=== PATIENT | male | born 1980 | race Caucasian/White ===

== ENCOUNTER 2023-07-29 12:01 | Inpatient (IN) | payer MEDICARE, MEDICAID ==
--- NOTE | 2023-07-29 12:37 | ED ---
General Adult HPI - General Chief complaint: Psychiatric Symptoms Stated complaint: mental health Time Seen by Provider: 07/29/23 12:25 Source: patient, RN notes reviewed, old records reviewed Mode of arrival: ambulatory Limitations: no limitations - History of Present Illness Initial comments: This is a 43-year-old male who presents to the emergency department because he believes people are following him and trying to kill him. 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 Patient states they have guns and he believes they are going to kill him. Patient states he went to [facility] and [facility] and they instructed him to come here. Patient denies any physical complaints. Patient denies fever chills fevers is chest pain patient has any difficulty breathing patient has abdominal pain - Related Data Home Medications Medication Instructions Recorded Confirmed Aripiprazole Lauroxil [Aristada] 1,064 mg IM Q56D 07/29/23 07/29/23 Cyclobenzaprine [Flexeril] 5 mg PO Q8H PRN 07/29/23 07/29/23 Divalproex [Depakote] 250 mg PO DAILY@1800 07/29/23 07/29/23 Divalproex [Depakote] 500 mg PO BID@0900,1800 07/29/23 07/29/23 Fluticasone Nasal [place] [Flonase 2 spray EA NOSTRIL DAILY 07/29/23 07/29/23 Nasal [place]] Multivitamins, Thera [Multivitamin 1 tab PO DAILY 07/29/23 07/29/23 (formulary)] OLANZapine [OLANZapine Odt] 10 mg PO TID 07/29/23 07/29/23 Propranolol [Inderal] 20 mg PO TID 07/29/23 07/29/23 busPIRone HCL 20 mg PO TID 07/29/23 07/29/23 clonazePAM [KlonoPIN] 1 mg PO TID PRN 07/29/23 07/29/23 haloperidoL [Haloperidol] 10 mg PO ONCE 07/29/23 07/29/23 lisinopriL [Zestril] 5 mg PO DAILY 07/29/23 07/29/23 traZODone HCL [Desyrel] 100 mg PO HS 07/29/23 07/29/23 Allergies Allergy/AdvReac Type Severity Reaction Status Date / Time Penicillins Allergy Rash/Hives Verified 07/29/23 13:21 Review of Systems ROS Statement: Those systems with pertinent positive or pertinent negative responses have been documented in the HPI. ROS Other: All systems not noted in ROS Statement are negative. Past Medical History Past Medical History: Hypertension History of Any Multi-Drug Resistant Organisms: None Reported Past Surgical History: Orthopedic Surgery Past Psychological History: Anxiety, Schizoaffective Disorder Smoking Status: Never smoker Past Alcohol Use History: Rare Past Drug Use History: None Reported General Exam - General Exam Comments Initial Comments: GENERAL: Patient is well-developed and well-nourished. Patient is nontoxic and well- hydrated and is in no acute distress. ENT: Neck is soft and supple. No significant lymphadenopathy is noted. Oropharynx is clear. Moist mucous membranes. Neck has full range of motion without eliciting any pain. EYES: The sclera were anicteric and conjunctiva were pink and moist. Extraocular movements were intact and pupils were equal round and reactive to light. Eyelids were unremarkable. PULMONARY: Unlabored respirations. Good breath sounds bilaterally. No audible rales rhonchi or wheezing was noted. CARDIOVASCULAR: There is a regular rate and rhythm without any murmurs gallops or rubs ABDOMEN: Soft and nontender with normal bowel sounds. SKIN: Skin is clear with no lesions or rashes and otherwise unremarkable. NEUROLOGIC: Patient is alert and oriented x3. Cranial nerves II through XII are grossly intact. Motor and sensory are also intact. Normal speech, volume and content. Symmetrical smile. MUSCULOSKELETAL: Normal extremities with adequate strength and full range of motion. LYMPHATICS: No significant lymphadenopathy is noted PSYCHIATRIC: Patient believes people are following him trying to kill him he states he can go nowhere without them. Patient states that he thinks they were care and are already in the hospital Limitations: no limitations Course Vital Signs 07/29/23 12:03 Temperature 98.8 F Pulse Rate 90 Respiratory 18 Rate Blood Pressure 134/85 O2 Sat by Pulse 97 Oximetry Medical Decision Making - Medical Decision Making Was pt. sent in by a medical professional or institution (, PA, SPECIAL EDUCATION PARA PROFESSIONAL, urgent care, hospital, or detention...) When possible be specific @ -Patient was sent in by [facility] from [facility] Did you speak to anyone other than the patient for history (EMS, parent, family, police, friend...)? What history was obtained from this source @ -No Did you review nursing and triage notes (agree or disagree)? Why? @ -I reviewed and agree with nursing and triage notes Were old charts reviewed (outside hosp., previous admission, EMS record, old EKG, old radiological studies, urgent care reports/EKG's, detention records)? Report findings @ -I reviewed prior charts and this patient Differential Diagnosis (chest pain, altered mental status, abdominal pain women, abdominal pain men, vaginal bleeding, weakness, fever, dyspnea, syncope, headache, dizziness, GI bleed, back pain, seizure, CVA, palpatations, mental hea lth, musculoskeletal)? @ -Differential Mental Health Depression, anxiety, bipolar, psychosis, schizophrenia, borderline personality, situational depression, adjustment disorder, behavioral disorder, brain tumor, malingering, substance abuse, encephalopathy, medication reaction, dementia, hypothyroidism, degenerative neurologic disorder, lupus.... This is not meant to be all-inclusive list EKG interpreted by me (3pts min.). @ -As above X-rays interpreted by me (1pt min.). @ -None done CT interpreted by me (1pt min.). @ -None done U/S interpreted by me (1pt. min.). @ -None done What testing was considered but not performed or refused? (CT, X-rays, U/S, labs)? Why? @ -None What meds were considered but not given or refused? Why? @ -None Did you discuss the management of the patient with other professionals (professionals i.e. , PA, SPECIAL EDUCATION PARA PROFESSIONAL, lab, RT, psych nurse, health care social worker, production administrator, teacher, hospital security officer, corrections caseworker)? Give summary @ -EPS evaluated this patient and determined the patient needed to be admitted with consultation with the psychiatrist Was smoking cessation discussed for >3mins.? @ -No Was critical care preformed (if so, how long)? @ -No Were there social determinants of health that impacted care today? How? (Homelessness, low income, unemployed, alcoholism, drug addiction, transportation, low edu. Level, literacy, decrease access to med. care, fci, rehab)? @ -No Was there de-escalation of care discussed even if they declined (Discuss DNR or withdrawal of care, Hospice)? DNR status @ -No What co-morbidities impacted this encounter? (DM, HTN, Smoking, COPD, CAD, Cancer, CVA, ARF, Chemo, Hep., AIDS, mental health diagnosis, sleep apnea, morbid obesity)? @ -None Was patient admitted / discharged? Hospital course, mention meds given and route, prescriptions, significant lab abnormalities, going to OR and other pertinent info. @ -Patient wanted to be admitted so he signed himself in. EPS was involved in interviewing the patient and speaking with a psychiatrist Undiagnosed new problem with uncertain prognosis? @ -No Drug Therapy requiring intensive monitoring for toxicity (Heparin, Nitro, Insulin, Cardizem)? @ -No Were any procedures done? @ -No Diagnosis/symptom? @ -Acute paranoia Acute, or Chronic, or Acute on Chronic? @ -Acute Uncomplicated (without systemic symptoms) or Complicated (systemic symptoms)? @ -Complicated Side effects of treatment? @ -No Exacerbation, Progression, or Severe Exacerbation? @ -No Poses a threat to life or bodily function? How? (Chest pain, USA, CA, pneumonia, PE, COPD, DKA, ARF, appy, cholecystitis, CVA, Diverticulitis, Homicidal, Suicidal, threat to staff... and all critical care pts) @ -No - Lab Data Lab Results 07/29/23 07/29/23 Range/Units 13:15 14:22 Urine Opiates Screen Not Detected (NotDetected) Ur Oxycodone Screen Not Detected (NotDetected) Urine Methadone Screen Not Detected (NotDetected) Ur Barbiturates Screen Not Detected (NotDetected) U Tricyclic Antidepress Not Detected (NotDetected) Ur Phencyclidine Scrn Not Detected (NotDetected) Ur Amphetamines Screen Not Detected (NotDetected) U Methamphetamines Scrn Not Detected (NotDetected) U Benzodiazepines Scrn Not Detected (NotDetected) Urine Cocaine Screen Not Detected (NotDetected) U Marijuana (THC) Screen Not Detected (NotDetected) Influenza Type A (PCR) Not Detected (Not Detectd) Influenza Type B (PCR) Not Detected (Not Detectd) RSV (PCR) Not Detected (Not Detectd) SARS-CoV-2 (PCR) Not Detected (Not Detectd) Disposition Clinical Impression: Acute paranoia Disposition: ADMITTED IP TO THIS HOSP Referrals: Yue Santamaria MD [Primary Care Provider] - 1-2 days Time of Disposition: 15:02
[2023-07-29 13:56] LABS: Amphetamine Screen,Urine Not Detected (NotDetected); Barbiturate Screen,Urine Not Detected (NotDetected); Benzodiazepines Screen,Urine Not Detected (NotDetected); Cocaine Screen,Urine Not Detected (NotDetected); Methadone Screen, Urine Not Detected (NotDetected); Opiate Screen,Urine Not Detected (NotDetected); Oxycodone Screen, Urine Not Detected (NotDetected); Phencyclidine Screen,Urine Not Detected (NotDetected); Tricyclic Antidepressant,Urine Not Detected (NotDetected); Urn Cannabinoid Scrn Not Detected (NotDetected)
[2023-07-29] MEDS ORDERED: HALOPERIDOL LACTATE 5 MG/ML 1 ML VIAL IM PRN (16:02)
[2023-07-29] MEDS ORDERED: MAG HYDROX/AL HYDROX/SIMETH 355 ML BOTTLE PO PRN (16:02)
[2023-07-29] MEDS: DIVALPROEX 250 MG TABLET.DR PO SCH (17:52)
[2023-07-29] MEDS: DIVALPROEX 500 MG TABLET.DR PO SCH (17:52)
[2023-07-29] MEDS: clonazePAM 1 MG TAB PO PRN (18:55)
[2023-07-29] MEDS: IBUPROFEN 600 MG TAB PO PRN (18:57)
[2023-07-29] MEDS: busPIRone HCl 10 MG TAB PO SCH (21:14)
[2023-07-29] MEDS: traZODone HCL 100 MG TAB PO SCH (21:14)
[2023-07-29] MEDS: OLANZapine ODT 10 MG TAB PO SCH (21:14)
[2023-07-29] MEDS: PROPRANOLOL 20 MG TAB PO SCH (21:14)
[2023-07-30] MEDS: FLUTICASONE 50MCG/SPRAY NASAL 16GM EA NOSTRIL SCH (09:35)
[2023-07-30] MEDS: lisinopriL 5 MG TAB PO SCH (09:35)
[2023-07-30] MEDS: NICOTINE 14MG/24HR PATCH TRANSDERM SCH (09:36)
[2023-07-30] MEDS: MULTIVITAMINS, THERA 1 EACH TAB PO SCH (09:36)
[2023-07-30 13:56] LABS: ALT 23 U/L (4-49); AST 25 U/L (17-59); African American GFR (CKD) >90 (>60 ml/min/1.73 sqM); Alkaline Phosphatase 68 U/L (38-126); Anion Gap 5 mmol/L; Bilirubin, Delta 0.2 mg/dL (0.0-0.2); Bilirubin,Unconjugated 0.3 mg/dL (0.0-1.1); Blood Urea Nitrogen 15 mg/dL (9-20); Calcium 8.9 mg/dL (8.4-10.2); Carbon Dioxide 30 mmol/L (22-30); Chloride 105 mmol/L (98-107); Glucose 74 mg/dL (74-99); Non-African American GFR(CKD) >90 (>60 ml/min/1.73 sqM); Potassium 4.6 mmol/L (3.5-5.1); Sodium 140 mmol/L (137-145); Total Bilirubin 0.5 mg/dL (0.2-1.3); Total Protein 6.5 g/dL (6.3-8.2)
[2023-07-30 14:20] LABS: Basophils # (A) 0.1 k/uL (0-0.2); Basophils % (A) 1 %; Eosinophils # (A) 0.3 k/uL (0-0.7); Eosinophils % (A) 4 %; HGB 15.3 gm/dL (13.0-17.5); Lymphocytes # (A) 2.3 k/uL (1.0-4.8); Lymphocytes % (A) 27 %; MCH 31.6 pg (25.0-35.0); MCV 93.1 fL (80.0-100.0); Mean Platelet Volume 7.8; Monocytes # (A) 0.6 k/uL (0-1.0); Monocytes % (A) 7 %; Neutrophils # (A) 5.3 k/uL (1.3-7.7); Neutrophils % (A) 61 %; Platelet Count 218 k/uL (150-450); RBC 4.84 m/uL (4.30-5.90); RDW 12.1 % (11.5-15.5); WBC 8.7 k/uL (3.8-10.6)
--- NOTE | 2023-07-30 14:48 | P.HP ---
Psychiatric H&P - . H&P Date: 07/30/23 History & Physical: Allergies Allergy/AdvReac Type Severity Reaction Status Date / Time lamotrigine [From Lamictal] Allergy Unknown Rash/Hives Verified 07/29/23 17:57 Penicillins Allergy Rash/Hives Verified 07/29/23 17:57 Vital Signs Temp 98.1 F 07/30/23 06:14 Pulse 113 H 07/30/23 09:38 Resp 16 07/30/23 06:14 BP 119/84 07/30/23 09:38 Pulse Ox 98 07/29/23 17:07 FiO2 Intake & Output 07/29/23 07/30/23 07/30/23 18:59 06:59 18:59 Weight 108.976 kg Laboratory Last Values WBC 8.7 k/uL (3.8-10.6) 07/30/23 12:53 RBC 4.84 m/uL (4.30-5.90) 07/30/23 12:53 Hgb 15.3 gm/dL (13.0-17.5) 07/30/23 12:53 Hct 45.0 % (39.0-53.0) 07/30/23 12:53 MCV 93.1 fL (80.0-100.0) 07/30/23 12:53 MCH 31.6 pg (25.0-35.0) 07/30/23 12:53 MCHC 34.0 g/dL (31.0-37.0) 07/30/23 12:53 RDW 12.1 % (11.5-15.5) 07/30/23 12:53 Plt Count 218 k/uL (150-450) 07/30/23 12:53 MPV 7.8 07/30/23 12:53 Neutrophils % 61 % 07/30/23 12:53 Lymphocytes % 27 % 07/30/23 12:53 Monocytes % 7 % 07/30/23 12:53 Eosinophils % 4 % 07/30/23 12:53 Basophils % 1 % 07/30/23 12:53 Neutrophils # 5.3 k/uL (1.3-7.7) 07/30/23 12:53 Lymphocytes # 2.3 k/uL (1.0-4.8) 07/30/23 12:53 Monocytes # 0.6 k/uL (0-1.0) 07/30/23 12:53 Eosinophils # 0.3 k/uL (0-0.7) 07/30/23 12:53 Basophils # 0.1 k/uL (0-0.2) 07/30/23 12:53 Sodium 140 mmol/L (137-145) 07/30/23 12:53 Potassium 4.6 mmol/L (3.5-5.1) 07/30/23 12:53 Chloride 105 mmol/L (98-107) 07/30/23 12:53 Carbon Dioxide 30 mmol/L (22-30) 07/30/23 12:53 Anion Gap 5 mmol/L 07/30/23 12:53 BUN 15 mg/dL (9-20) 07/30/23 12:53 Creatinine 0.90 mg/dL (0.66-1.25) 07/30/23 12:53 Est GFR (CKD-EPI)AfAm >90 (>60 ml/min/1.73 sqM) 07/30/23 12:53 Est GFR (CKD-EPI)NonAf >90 (>60 ml/min/1.73 sqM) 07/30/23 12:53 Glucose 74 mg/dL (74-99) 07/30/23 12:53 Calcium 8.9 mg/dL (8.4-10.2) 07/30/23 12:53 Total Bilirubin 0.5 mg/dL (0.2-1.3) 07/30/23 12:53 Conjugated Bilirubin 0.0 mg/dL (0.0-0.3) 07/30/23 12:53 Unconjugated Bilirubin 0.3 mg/dL (0.0-1.1) 07/30/23 12:53 Delta Bilirubin 0.2 mg/dL (0.0-0.2) 07/30/23 12:53 AST 25 U/L (17-59) 07/30/23 12:53 ALT 23 U/L (4-49) 07/30/23 12:53 Alkaline Phosphatase 68 U/L (38-126) 07/30/23 12:53 Total Protein 6.5 g/dL (6.3-8.2) 07/30/23 12:53 Albumin 4.0 g/dL (3.5-5.0) 07/30/23 12:53 TSH 0.758 mIU/L (0.465-4.680) 07/30/23 12:53 Urine Opiates Screen Not Detected (NotDetected) 07/29/23 13:15 Ur Oxycodone Screen Not Detected (NotDetected) 07/29/23 13:15 Urine Methadone Screen Not Detected (NotDetected) 07/29/23 13:15 Ur Barbiturates Screen Not Detected (NotDetected) 07/29/23 13:15 U Tricyclic Antidepress Not Detected (NotDetected) 07/29/23 13:15 Ur Phencyclidine Scrn Not Detected (NotDetected) 07/29/23 13:15 Ur Amphetamines Screen Not Detected (NotDetected) 07/29/23 13:15 U Methamphetamines Scrn Not Detected (NotDetected) 07/29/23 13:15 U Benzodiazepines Scrn Not Detected (NotDetected) 07/29/23 13:15 Urine Cocaine Screen Not Detected (NotDetected) 07/29/23 13:15 U Marijuana (THC) Screen Not Detected (NotDetected) 07/29/23 13:15 Influenza Type A (PCR) Not Detected (Not Detectd) 07/29/23 14:22 Influenza Type B (PCR) Not Detected (Not Detectd) 07/29/23 14:22 RSV (PCR) Not Detected (Not Detectd) 07/29/23 14:22 SARS-CoV-2 (PCR) Not Detected (Not Detectd) 07/29/23 14:22 07/30/23 14:47 Psychiatric Evaluation Identifying Data: is a 43 years old, single, w.m. , who lives in [place], [place]. Chief Complaint: I am being followed, watched, some people are trying to kill me History of Psychiatric Illness- The patient noted that he has had these symptoms since his 20s. The patient noted that he has over 20 hospitalizations with same symptoms. He goes to the hospital with symptoms of being followed, watched and killed by people around him. These people are like humans. He does not know any particular person or persons trying want to kill him. He denied experiencing any symptoms of killing himself or other people during these episodes r otherwise. In between hospitalizations, he goes to [facility]. He indicated that he regularly goes for his follow-up in between hospitalizations. He sees Dr. Bond and therapist Shania. He is currently taking Aristada every 2months. He is in [facility]. He also takes Buspar, Klonopin and Propranolol. He was recently admitted to [facility] in [place], [place] and discharge from there on Depakote and Zyprexa. He saw Dr. Garcia yesterday, who prescribed him Haldol 10 mg and sent him to the hospital. He indicated that he does best on Haldol. The patient has been on numerous medications. The patient is a drug resistant according to him. He thinks this is delusional disorder with poor response to antipsychotics. Past Medication History: Depakote, Risperdal, Lamictal, Trileptal, Zyprexa, Geodon, Latuda, Zoloft, Effexor. The patient thinks Abilify and Latuda worked the best. No there drug worked. Leading questions: The patient denied Depression and Anxiety. Denied SI or HI. Admitted symptoms consistent with psychosis Drugs and alcohol history: None. Tobacco use: None. Past Medical history: HTN Family History of Psychiatric Disorder: Social History and Family History: The patient thinks that his father, mother and paternal uncle suffered from mental illness but he does not have the details. The patient was born and raised [place], [place]. He grew-up two siblings. He finished [employer]. His lingest alejandro was as a cook for 10 years. He is on SSDI. He is on disability since 2009. OTC: Vitamins Allergies: PNC, Lamictal Objective: MSE: Alert and attentive. Orientation times three Dressed and Groomed: Appropriately. Pleasant and cooperative. Psychomotor Activity: Normal. Speech: Normal in tone, quality, and quantity. Mood: Anxious Affect: Flat SI or HI: None. Perceptual disturbance: None noted during this evaluation. Thought Content: The patient noted that he is being followed and watched by people. he believes that these people want to kill him. or other delusional thinking noted. Thought Process: Normal. Cognition: Intact Judgment and Insight: Poor. AIMS: Normal Labs: Available reviewed. Diagnosis: Paranoid Schizophrenia. Plan and Recommendations: Continue current Medications. Decrease dose of Depakote and Zyprexa. Consider Haldol or continue Aristada. Monitor MS and side effects of medications and adjust medications accordingly. Provide supportive psychotherapy and psychoeducation. The patient provided Substance abuse counseling. Smoke cessation therapy. The patient to attend [facility]. CBC with Diff, CMP, TSH, Lipid Profile, HbA1c, EKG, Medication Consent with explanation of risk/benefits and side effects: Explained and obtained.
[2023-07-30 15:11] LABS: Valproic Acid (Depakene) 61.5 ug/mL
[2023-07-30 20:10] LABS: Chol/HDL Ratio 4.57 Ratio; LDL Cholesterol,Calculated 109.5 mg/dL (0.0-131.0)
--- NOTE | 2023-07-31 01:27 | P.CONS ---
History of Present Illness - Reason for Consult Consult date: 07/31/23 - History of Present Illness The patient is a 43-year-old male with a PMH of hypertension, schizoaffective disorder, who had presented to the emergency room with complaints of depression and suicidal ideation. The patient was reportedly acting strangely and was advised to come to the emergency room. He was admitted to the mental health unit where he was seen and evaluated. The patient reports that he was "delusional". He denied any physical complaints at the time of interview. Denied experiencing chest discomfort, shortness of breath, fever, chills, cough, nausea, vomiting, abdominal pain, diarrhea. Denies tobacco, alcohol, or substance use. Reports compliance with medications at home. Review of systems: Pertinent positives and negatives as discussed in HPI, a complete review of systems was performed and all other systems are negative. Physical examination: General: non toxic, no distress, appears at stated age, obese Derm: no unusual rashes/lesions, no unusual ecchymoses, warm, dry Head: atraumatic, normocephalic, symmetric Eyes: EOMI, no lid lag, anicteric sclera ENT: Nose and ears atraumatic, no thrush, no pharyngeal erythema Neck: trachea midline, supple Mouth: no lip lesion, mucus membranes moist Cardiovascular: S1S2 reg, no murmur, no edema Lungs: CTA bilateral, no rhonchi, no rales , no accessory muscle use Abdominal: soft, nontender to palpation, no guarding Ext: no gross muscle atrophy, no contractures, Neuro: No gross focal neuro deficits noted Psych: Alert, oriented, appropriate affect Assessment: Depression and suicidal ideation Imaging: None performed Data Review: Urine toxicology unremarkable and respiratory viral panel unremarkable, with WBC count 8.7, hemoglobin 15.3, sodium 140, potassium 4.6, BUN 15, creatinine 0.9 Plan: Defer management of depression and suicidal ideation to the primary psychiatry service Thank you for allowing us to participate in the care of this patient. We will follow peripherally. Do not hesitate to contact us with questions. Someone can be reached from the [facility] hospitalist group at all hours of the day at [phone]. Past Medical History Past Medical History: Hypertension History of Any Multi-Drug Resistant Organisms: None Reported Past Surgical History: Orthopedic Surgery Additional Past Surgical History / Comment(s): Left shoulder surgery-limited mobility Past Psychological History: Anxiety, Schizoaffective Disorder Smoking Status: Former smoker Past Alcohol Use History: Rare Past Drug Use History: None Reported - Past Family History Father History Unknown: Yes Family Medical History: Hyperlipidemia Medications and Allergies Home Medications Medication Instructions Recorded Confirmed Type Aripiprazole Lauroxil [Aristada] 1,064 mg IM Q56D 07/29/23 07/29/23 History Cyclobenzaprine [Flexeril] 5 mg PO Q8H PRN 07/29/23 07/29/23 History Divalproex [Depakote] 250 mg PO DAILY@1800 07/29/23 07/29/23 History Divalproex [Depakote] 500 mg PO BID@0900,1800 07/29/23 07/29/23 History Fluticasone Nasal [place] [Flonase 2 spray EA NOSTRIL DAILY 07/29/23 07/29/23 History Nasal [place]] Multivitamins, Thera [Multivitamin 1 tab PO DAILY 07/29/23 07/29/23 History (formulary)] OLANZapine [OLANZapine Odt] 10 mg PO TID 07/29/23 07/29/23 History Propranolol [Inderal] 20 mg PO TID 07/29/23 07/29/23 History busPIRone HCL 20 mg PO TID 07/29/23 07/29/23 History clonazePAM [KlonoPIN] 1 mg PO TID PRN 07/29/23 07/29/23 History lisinopriL [Zestril] 5 mg PO DAILY 07/29/23 07/29/23 History traZODone HCL [Desyrel] 100 mg PO HS 07/29/23 07/29/23 History Allergies Allergy/AdvReac Type Severity Reaction Status Date / Time lamotrigine [From Lamictal] Allergy Unknown Rash/Hives Verified 07/29/23 17:57 Penicillins Allergy Rash/Hives Verified 07/29/23 17:57 Physical Exam Vitals: Vital Signs Temp Pulse Pulse Resp BP BP 07/30/23 21:50 109 H 97/60 07/30/23 15:46 111 H 100/63 07/30/23 09:38 113 H 119/84 07/30/23 06:14 98.1 F 77 16 118/73 Results CBC & Chem 7: 05/22/24 12:53 07/30/23 12:53 Labs: Abnormal Lab Results - Last 24 Hours (Table) 07/30/23 Range/Units 12:53 HDL Cholesterol 38.10 L (40.00-60.00) mg/dL
[2023-07-31] MEDS: ACETAMINOPHEN TAB 325 MG TAB PO PRN (13:57)
[2023-07-31] MEDS: PROPRANOLOL 20 MG TAB PO SCH (15:24)
[2023-07-31] MEDS: busPIRone HCl 10 MG TAB PO SCH (15:24)
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
[2023-07-31] MEDS: OLANZapine ODT 5 MG TAB PO SCH (18:23)
[2023-08-01] MEDS ORDERED: OLANZapine ODT 5 MG TAB PO SCH (07:00)
[2023-08-01] MEDS: OLANZapine ODT 10 MG TAB PO SCH ×2 (09:17→15:38)
--- NOTE | 2023-08-01 15:50 | P.PN ---
Progress Note - Text Progress Note Date: 08/01/23 Interval history: Patient was seen isolating to his room with the lights off. He was directable and agreeable to speak with consumer loan underwriter. His mood is irritable today and he complains about other patients who are talking on the unit. He refused his Depakote this morning and tells me he no longer wants to take it because he believes it is making his hair fall out, states he sees a lot of hair come out in chunks in the shower. There is no evidence of alopecia on his scalp, but we discussed he should save any hair that falls out in the shower to show me tomorrow. He complains he was not given his Trazodone last night, and per MAR, dose was not given due to patient already asleep. At this time, patient denies any suicidal or homicidal ideation, intent or plan. Denies any auditory or visual hallucinations. Patient denies any side effects from the medications and has been compliant with meds. Mental status exam: General Appearance: Patient appears to be stated age, obese adult male, dressed in clean casual attire Behavior: No agitated behavior. Patient is irritable, isolates to his room. Speech: Patient's speech is fluent and non-pressured. Mood/Affect: Mood is irritable, affect is congruent and constricted. Suicidality/Homicidality: Patient denies having any suicidal or homicidal ideation intent or plan. Perceptions: Patient denies any auditory or visual hallucinations. Though content/process: There is evidence of paranoid delusional thought content. Thought process is linear. Memory and concentration: AOX3, grossly intact for the purposes of this session Judgment and insight: poor Assessment/Plan: Continue with current diagnosis. Patient continues to meet criteria for inpatient psychiatric admission for symptom stabilization and safety. Increase Zyprexa to 10mg TID (0900, 1500, 1900). Move up Trazodone dose to 1900 since patient states he goes to bed early. Monitor for medication compliance and for any psychotropic medication side effects. Will continue to monitor ongoing response to treatment. Encouraged participation in milieu.
[2023-08-01] MEDS: traZODone HCL 100 MG TAB PO SCH (22:20)
[2023-08-02] MEDS: CYCLOBENZAPRINE 5 MG TAB PO PRN (04:02)
--- NOTE | 2023-08-02 19:04 | P.PN ---
Progress Note - Text Progress Note Date: 08/02/23 Interval history: Patient was seen sitting on his bed with the lights on. He appears less irritable today, more calm, but still somewhat guarded and terse. He was directable and agreeable to speak with gag writer. He continues to refuse his Depakote, but does not mention his hair falling out today. He appears to benefit from increasing the Zyprexa dose to 10 mg TID. He reports concern over weight gain from Zyprexa in the past. We discussed the addition of metformin however he declined, stated he will discuss options with his outpatient psychiatrist. He reports adequate sleep and good appetite. At this time, patient denies any suicidal or homicidal ideation, intent or plan. Denies any auditory or visual hallucinations. Patient denies any side effects from the medications and has been compliant with meds. Mental status exam: General Appearance: Patient appears to be stated age, obese adult male, dressed in clean casual attire Behavior: No agitated behavior. More calm, but still somewhat guarded and terse. Speech: Patient's speech is fluent and non-pressured. Mood/Affect: Mood is improving mildly, affect is congruent and constricted. Suicidality/Homicidality: Patient denies having any suicidal or homicidal ideation intent or plan. Perceptions: Patient denies any auditory or visual hallucinations. Though content/process: There is evidence of paranoid delusional thought content. Thought process is linear. Memory and concentration: AOX3, grossly intact for the purposes of this session Judgment and insight: improving mildly Assessment/Plan: Continue with current diagnosis. Patient continues to meet criteria for inpatient psychiatric admission for symptom stabilization and safety. Continue Zyprexa 10mg TID (0900, 1500, 1900). He continues to refuse his Depakote. Monitor for mood changes. Monitor for medication compliance and for any psychotropic medication side effects. Will continue to monitor ongoing response to treatment. Encouraged participation in milieu.
[2023-08-03] MEDS: haloperidoL 5 MG TAB PO PRN (18:59)
--- NOTE | 2023-08-03 20:44 | P.PN ---
Progress Note - Text Progress Note Date: 08/03/23 Interval history: Staff informed me this evening that patient is increasingly paranoid and believes of other patients having a "shank" and are going to attack him. I evaluated patient in his room this evening and he was found him sitting on his bed with the lights on waiting for nurse to bring his meds. He confirms to me his concerns about other patients on the unit having a "shank" and are going to gang up on him to stab him. He denies anyone making threats to him and denies anyone telling him of any plans to attack him. He denies any specific patient, and reports it's "all of them", although he is frustrated by 1-2 patients on the unit who tend to be loud in the hallways. He was given Haldol 5 mg po x 1 along with his evening medications and he went to sleep. He has not been agitated, but is more paranoid today and tends to isolate to his room. He continues to refuse his Depakote, but does not mention his hair falling out today. He reports adequate sleep and good appetite. At this time, patient denies any suicidal or homicidal ideation, intent or plan. Denies any auditory or visual hallucinations. Patient denies any side effects from the medications. He continues to insist on taking the lowest doses of medication necessary. Mental status exam: General Appearance: Patient appears to be stated age, obese adult male, dressed in clean casual attire Behavior: No agitated behavior. Calm but guarded and isolates to his room, appears hypervigilant. Speech: Patient's speech is fluent and non-pressured. Mood/Affect: Mood is anxious, affect is congruent and constricted. Suicidality/Homicidality: Patient denies having any suicidal or homicidal ideation intent or plan. Perceptions: Patient denies any auditory or visual hallucinations. Though content/process: There is evidence of paranoid delusional thought content (thinks patients on the unit have a shank and are going to stab him). Thought process is linear. Memory and concentration: AOX3, grossly intact for the purposes of this session Judgment and insight: poor Assessment/Plan: Continue with current diagnosis. Patient continues to meet criteria for inpatient psychiatric admission for symptom stabilization and safety. Continue Zyprexa 10mg ODT TID (0900, 1500, 1900) and add Zyprexa 5 mg daily in the morning for total dose of 15 mg/10mg/10mg. He continues to refuse his Depakote. Monitor for mood changes. Monitor for medication compliance and for any psychotropic medication side ef fects. Will continue to monitor ongoing response to treatment. Encouraged participation in milieu.
[2023-08-04] MEDS: OLANZapine 5 MG TAB PO SCH (09:10)
--- NOTE | 2023-08-04 11:29 | P.PN ---
Progress Note - Text Progress Note Date: 08/04/23 Interval history: Patient was found sitting in the TV room and staring out the window this morning. He does not appear to engage with peers in the room, appears to keep to himself. He claims he is "good" however he appears paranoid and guarded. He continues to exhibit paranoid delusional thought content, believes other patients on the unit were planning to attack him with a shank last night, which he tries to minimize this morning and says he hasn't really been thinking about it this morning, however he states those patients "they should be prosecuted". He is referring to all the patients and not just one or two patients in particular. He believes this has been happening every day for the past two years. We reviewed his medication in detail. He reports he was started on the Aristada last month and the next dose is due tomorrow 08/05/23. We discussed discontinuing the Aristada and starting Haldol in its place. He reports he has taken Haldol in the past (does not recall dates) and believes he did better on it. He states he is not happy with the Zyprexa and does not want to take it; he previously reported concern for weight gain on the Zyprexa. He has gained weight on the Zyprexa previously and worked hard to loose the weight and does not want to gain it back. He continues to refuse his Depakote. He reports adequate sleep and good appetite. He claims good mood but has an irritable edge. At this time, patient denies any suicidal or homicidal ideation, intent or plan. Denies any auditory or visual hallucinations. His insight into his paranoid delusions is poor. Patient denies any side effects from the medications. Mental status exam: General Appearance: Patient appears to be stated age, obese adult male, dressed in clean casual attire, garcia. Behavior: No agitated behavior. He is able to maintain calmness, not agitated today, is guarded and keeps to himself. He he is very paranoid and appears as if he could lash out if provoked. Speech: Patient's speech is fluent, terse and non-pressured. Mood/Affect: Mood is "good", affect is incongruent and constricted. Suicidality/Homicidality: Patient denies having any suicidal or homicidal ideation intent or plan. Perceptions: Patient denies any auditory or visual hallucinations. Though content/process: There is evidence of paranoid delusional thought content (thinks patients on the unit have a shank and are going to stab him, thinks patients should be prosecuted). Thought process is generally linear. Memory and concentration: AOX3, grossly intact for the purposes of this session Judgment and insight: poor Assessment/Plan: Continue with current diagnosis. Patient continues to meet criteria for inpatient psychiatric admission for symptom stabilization and safety. He is compliant with the Zyprexa but states he does not want the Zyprexa due to concerns over weight gain. Continue Zyprexa 10mg ODT TID (0900, 1500, 1900). Discontinue morning Zyprexa 5 mg dose. Start Haldol 5 mg BID for psychosis, with plan to increase as tolerated and transition to Haldol decanoate which he claims he has taken before. Discontinue his outpatient Aristada IM injection that he reports would have been due tomorrow 08/05/23. He continues to refuse his Depakote. Monitor for mood changes. Monitor for medication compliance and for any psychotropic medication side effects. Will continue to monitor ongoing response to treatment. Encouraged participation in milieu.
[2023-08-04] MEDS: haloperidoL 5 MG TAB PO SCH (12:35)
--- NOTE | 2023-08-05 14:59 | P.PN ---
Progress Note - Text Progress Note Date: 08/05/23 Follow-up Mediation Review Chief Complaint: I am very paranoid of people here Subjective: The patient noted that he gets agitated because he thinks the other patient and staff want to hurt him. He did note that he feels better since being on Haldol. He noted that he wants to get off Zyprexa. The patient was explained the protocol for cross titration. Complaint since yesterday: I am very paranoid of other patient and staff The patient has been attending the groups. The participation is limited. The interaction with staff and peers is limited. The patient is compliant with treatment recommendations. Leading questions: The patient admitted to being angry, anxious, and agitated. Denied SI or HI. Admitted to severe paranoia with agitation. Denied any other delusional thinking. Denied A/V hallucinations. Sleep and Appetite: Fair. Change in family/ living/job/financial/daily routine: No change. Change in medical condition: No change. Change in medications: No change. Side effects from Medications: None. Objective- MSE: Alert and attentive. Orientation times three. Dressed and Groomed: Appropriately. Pleasant and cooperative. Psychomotor Activity: Normal. Speech: Normal in tone, quality, and quantity. Mood: Angry and upset Affect: Intense, angry., SI or HI: None. Perceptual disturbance: None. Thought Content: Paranoid delusions. No other delusional thinking noted. Thought Process: Normal. Cognition: Intact Judgment and Insight: Fair. AIMS: Normal. Labs: No new labs. Diagnosis: Paranoid Schizophrenia. Plan and Recommendations: Continue current Medications. Increase Haldol 5 mg po tid. Decrease Zyprexa to 25 mg in divided doses. Monitor MS and side effects of medications and adjust medications accordingly. Provide supportive psychotherapy. The patient provided psychoeducation and advised The patient to attend tellez activities. Medication Consent with explanation of risk/benefits and side effects: Explained and obtained.
[2023-08-05] MEDS: OLANZapine ODT 10 MG TAB PO SCH (16:15)
[2023-08-05] MEDS: haloperidoL 5 MG TAB PO SCH (17:10)
[2023-08-06 07:14] VITALS: RESP 16
[2023-08-06] MEDS: OLANZapine ODT 5 MG TAB PO SCH (09:16)
--- NOTE | 2023-08-06 15:59 | P.PN ---
Progress Note - Text Progress Note Date: 08/06/23 Follow-up Mediation Review Chief Complaint: I am feeling fine Subjective: The patient noted that he is no longer feeling paranoid. He indicated that no one here is bothering him. He appeared calm and relaxed. Complaint since yesterday: No new complaints. The patient has been attending the groups. The participation is limited. The interaction with staff and peers is limited. The patient is compliant with treatment recommendations. Leading questions: The patient denied Depression and Anxiety. Denied SI or HI. Denied SI or HI. Denied symptoms consistent with psychosis. . Sleep and Appetite: Fine. Change in family/ living/job/financial/daily routine: No change. Change in medical condition: No change. Change in medications: No change. Side effects from Medications: None. Objective- MSE: Alert and attentive. Orientation times three. Dressed and Groomed: Appropriately. Pleasant and cooperative. Psychomotor Activity: Normal. Speech: Normal in tone, quality, and quantity. Mood: Good. Affect: Consistent with mood. SI or HI: None. Perceptual disturbance: None. Thought Content: No paranoia or other delusional thinking noted. Thought Process: Normal. Cognition: Intact Judgment and Insight: Fair. AIMS: Normal. Labs: No new labs. Diagnosis: Paranoid Schizophrenia. Plan and Recommendations: Continue current Medications. Monitor MS and side effects of medications and adjust medications accordingly. Provide supportive psychotherapy. The patient provided psychoeducation and advised The patient to attend tellez activities. Medication Consent with explanation of risk/benefits and side effects: Explained and obtained.
[2023-08-07 07:19] VITALS: TEMP 97.5
[2023-08-07 12:19] VITALS: BP 116/71; PULSE 96
--- NOTE | 2023-08-07 12:57 | P.PN ---
Progress Note - Text Progress Note Date: 08/07/23 Follow-up Mediation Review Chief Complaint: I am feeling fine Subjective: The patient continues to do well. He ia tolerating medications well. He is no longer feeling paranoid. He indicated that no one here is bothering him. He appeared calm and relaxed. Complaint since yesterday: No new complaints. The patient has been attending the groups. The participation is limited. The interaction with staff and peers is limited. The patient is compliant with treatment recommendations. Leading questions: The patient denied Depression and Anxiety. Denied SI or HI. Denied SI or HI. Denied symptoms consistent with psychosis. . Sleep and Appetite: Fine. Change in family/ living/job/financial/daily routine: No change. Change in medical condition: No change. Change in medications: No change. Side effects from Medications: None. Objective- MSE: Alert and attentive. Orientation times three. Dressed and Groomed: Appropriately. Pleasant and cooperative. Psychomotor Activity: Normal. Speech: Normal in tone, quality, and quantity. Mood: Good. Affect: Consistent with mood. SI or HI: None. Perceptual disturbance: None. Thought Content: No paranoia or other delusional thinking noted. Thought Process: Normal. Cognition: Intact Judgment and Insight: Fair. AIMS: Normal. Labs: No new labs. Diagnosis: Paranoid Schizophrenia. Plan and Recommendations: Continue current Medications. Monitor MS and side effects of medications and adjust medications accordingly. Provide supportive psychotherapy. The patient provided psychoeducation and advised The patient to attend tellez activities. Medication Consent with explanation of risk/benefits and side effects: Explained and obtained.
--- NOTE | 2023-08-07 16:13 | P.DS ---
Providers Date of admission: 07/29/23 15:57 Expected date of discharge: 08/07/23 Attending physician: Vikash Xiong MD Consults: 07/29/23 16:02 Consult Physician Routine Consulting Provider: Hamzah Holcomb Consult Reason/Comments: Medical H&P Do you want consulting provider notified?: Yes Primary care physician: Yue Santamaria MD - Discharge Diagnosis(es) (1) Paranoid schizophrenia Status: Acute Priority: High Assessment: Discharge Summary HPI: Identifying Data: is a 43 years old, single, w.m. , who lives in [place], [place]. Chief Complaint: I am being followed, watched, some people are trying to kill me History of Psychiatric Illness- The patient noted that he has had these symptoms since his 20s. The patient noted that he has over 20 hospitalizations with same symptoms. He goes to the hospital with symptoms of being followed, watched and killed by people around him. These people are like humans. He does not know any particular person or persons trying want to kill him. He denied experiencing any symptoms of killing himself or other people during these episodes r otherwise. In between hospitalizations, he goes to [facility]. He indicated that he regularly goes for his follow-up in between hospitalizations. He sees Dr. Bond and therapist Shania. He is currently taking Aristada every 2months. He is in [facility]. He also takes Buspar, Klonopin and Propranolol. He was recently admitted to [facility] in [place], [place] and discharge from there on Depakote and Zyprexa. He saw Dr. Garcia yesterday, who prescribed him Haldol 10 mg and sent him to the hospital. He indicated that he does best on Haldol. The patient has been on numerous medications. The patient is a drug resistant according to him. He thinks this is delusional disorder with poor response to antipsychotics. Past Medication History: Depakote, Risperdal, Lamictal, Trileptal, Zyprexa, Geodon, Latuda, Zoloft, Effexor. The patient thinks Abilify and Latuda worked the best. No there drug worked. Leading questions: The patient denied Depression and Anxiety. Denied SI or HI. Admitted symptoms consistent with psychosis Drugs and alcohol history: None. Tobacco use: Non Hospital Course: After admission, the patient was involved in pharmacotherapy, tellez milieu, and individual psychodynamic psychotherapy. The patient was started on Depakote, Klonopin, Buspar, Zyprexa and Haldol. The dose was titrated to obtain the desire effects. He was finally titrated to Klonopin 1 mg po tid prn, Buspar 20 mg po tid, Propranolol 20 po tid, Trazodone 100 mg po hs prn, Haldol 5 mg po tid and Zyprexa 10 mg po bid. The Haldol and Zyprexa were in the process of being cross titrated to Haldol. The patient tolerated medications well without any side effects. He felt stable enough to be discharged and follo-up with Dr. Morales for further titration. The patient was also involved in tellez activities. The patient attended the groups and participated well. The patient interacted with peers and staff well. The patient slowly started showing improvement. The hospital course was uneventful. The patient symptoms of depression, suicidal and homicidal ideations abated. The psychosis subsided. He was free of his paranoid delusions. The patient was stable to be discharged to out-patient care. The patient did not have guns or weapons in possession at home. MSE: Alert and attentive. Orientation times three Dressed and Groomed: Appropriately. Pleasant and cooperative. Psychomotor Activity: Normal. Speech: Normal in tone, quality, and quantity. Mood: Anxious Affect: Flat SI or HI: None. Perceptual disturbance: None noted during this evaluation. Thought Content: The patient noted that he is being followed and watched by people. he believes that these people want to kill him. or other delusional thinking noted. Thought Process: Normal. Cognition: Intact Judgment and Insight: Poor. AIMS: Normal Diagnosis: Paranoid Schizophrenia Plan: The patient to be discharged today. The patient has attained good improvement since admission. He is stable to be followed as an outpatient. The patient is not suicidal or Homicidal. He does not pose any harm to self or others. The patient remains at a greater risk of self-harm or harm to others than general population on a chronic basis due to psychiatric illness and substance abuse. The patient will continue taking following medication post discharge. The importance of medication compliance and maintaining regular appointments at psychiatric out-pt and PCP clinic was explained and encouraged. The understood and agreed with the recommendations. painting trades worker to arrange for and conduct family meeting to ensure safety upon discharge and answer any questions. The psychotherapist social worker to arrange for patients follow-up appointments at [facility] for psychiatric care along with follow-up with PCP. The patient provided psychoeducation. Advised to call 911 or go to nearest ED or call this hospital in case of acute worsening of symptomatology, severe side effects or having suicidal, homicidal thoughts and feeling unsafe at home. Patient Condition at Discharge: Stable Plan - Discharge Summary Discharge Rx Participant: No New Discharge Prescriptions: New haloperidoL [Haldol] 5 mg PO TID 30 Days #90 tab OLANZapine ODT [ZyPREXA Zydis] 10 mg PO 1500,1900 15 Days #30 tab Continue lisinopriL [Zestril] 5 mg PO DAILY Multivitamins, Thera [Multivitamin (formulary)] 1 tab PO DAILY Fluticasone Nasal [place] [Flonase Nasal [place]] 2 spray EA NOSTRIL DAILY clonazePAM [KlonoPIN] 1 mg PO TID PRN PRN Reason: Anxiety busPIRone HCL 20 mg PO TID traZODone HCL [Desyrel] 100 mg PO HS Propranolol [Inderal] 20 mg PO TID Discontinued Divalproex [Depakote] 250 mg PO DAILY@1800 Divalproex [Depakote] 500 mg PO BID@0900,1800 Cyclobenzaprine [Flexeril] 5 mg PO Q8H PRN PRN Reason: Muscle Spasm Aripiprazole Lauroxil [Aristada] 1,064 mg IM Q56D OLANZapine [OLANZapine Odt] 10 mg PO TID Discharge Medication List Fluticasone Nasal [place] [Flonase Nasal [place]] 2 spray EA NOSTRIL DAILY 07/29/23 [History] Multivitamins, Thera [Multivitamin (formulary)] 1 tab PO DAILY 07/29/23 [History] Propranolol [Inderal] 20 mg PO TID 07/29/23 [History] busPIRone HCL 20 mg PO TID 07/29/23 [History] clonazePAM [KlonoPIN] 1 mg PO TID PRN 07/29/23 [History] lisinopriL [Zestril] 5 mg PO DAILY 07/29/23 [History] traZODone HCL [Desyrel] 100 mg PO HS 07/29/23 [History] OLANZapine ODT [ZyPREXA Zydis] 10 mg PO 1500,1900 15 Days #30 tab 08/07/23 [Rx] haloperidoL [Haldol] 5 mg PO TID 30 Days #90 tab 08/07/23 [Rx] Follow up Appointment(s)/Referral(s): [facility] [Outside] - 08/12/23 10:30 am ([facility] team Friday at 10am. Dr Alanis August 11 @ 10:30am ) Yue Santamaria MD [Primary Care Provider] - 1-2 days Patient Instructions/Handouts: Schizophrenia (DC) Activity/Diet/Wound Care/Special Instructions: Avoid the use of street drugs and alcohol. Take all medications as prescribed. When you are in need of refills on your medications, please contact your medical provider and/or outpatient psychiatrist/provider to have this done. Please go to your scheduled outpatient appointment for aftercare treatment. If symptoms return or become worse, call the crisis line at and/or go to the nearest emergency room for evaluation. National Suicide Hotline 986 Discharge Disposition: HOME SELF-CARE
== END 2023-08-07 14:38 | disposition home or self-care (01) | DRG 885 ==
LOC: EC 12:01 → 3MHU 15:57
PROVIDERS: ADMIT Psychiatry & Neurology Psychiatry; ATTEND Psychiatry & Neurology Psychiatry
DX: F20.0 Paranoid schizophrenia (principal); R45.851 Suicidal ideations; I10 Essential (primary) hypertension; Z11.52 Encounter for screening for COVID-19; Z59.82 Transportation insecurity; Z79.899 Other long term (current) drug therapy; Z87.891 Personal history of nicotine dependence; Z88.0 Allergy status to penicillin
CPT/HCPCS: 80053; 80061; 80164; 80306; 82248; 83036; 84443; 85025; 87636; 99285